=== PATIENT | male | born 1945 | race Hispanic/Latino ===

== ENCOUNTER 2017-01-13 16:19 | Observation (INO) | payer BC, MEDICARE ==
[2017-01-13 16:33] VITALS: BMI 30.8
--- NOTE | 2017-01-13 17:05 | ED PDOC ---
Arrival/HPI - General Chief Complaint: Male Genitourinary Time Seen by Provider: 01/13/17 16:32 Historian: Patient - History of Present Illness Narrative History of Present Illness (Text): 01/13/17 16:50 Hammad Taylor is a 71 year old male, whose past medical history includes diabetes, A fib, hypertension, chronic back pain, and a double hip replacement, who presents to the emergency department complaining of being unable to urinate since this morning. Patient states he presented symptoms to PMD, Dr. Muro, who directed patient to emergency department after symptoms persisted despite heavily drinking water for an hour. Patient denies any recent surgeries, painful urination, vomiting,or any other complaint at this time. PMD: Dr. Muro Time/Duration: 4-6 hours Symptom Onset: Gradual Symptom Course: Unchanged Activities at Onset: Rest Context: Home Past Medical History - Provider Review Nursing Documentation Reviewed: Yes - Infectious Disease Hx of Infectious Diseases: None - Cardiac Hx Atrial Fibrillation: Yes - Endocrine/Metabolic Hx Diabetes Mellitus Type 1: Yes - Psychiatric Hx Substance Use: No Family/Social History - Physician Review Nursing Documentation Reviewed: Yes Family/Social History: No Known Family HX Smoking Status: Never Smoked Hx Alcohol Use: No Hx Substance Use: No Allergies/Home Meds Allergies/Adverse Reactions: Allergies No Known Allergies Allergy (Verified 05/01/13 12:51) Home Medications: Home Meds Medication Instructions Recorded Confirmed Digoxin [Digox] 0.125 mg PO 05/01/13 05/01/13 Losartan Potassium [Cozaar] 100 mg PO 05/01/13 05/01/13 Warfarin [Coumadin] 3 mg PO 05/01/13 05/01/13 Review of Systems - Physician Review All systems were reviewed & negative as marked: Yes - Review of Systems Constitutional: absent: Fevers, Night Sweats Eyes: absent: Vision Changes ENT: absent: Hearing Changes Respiratory: absent: SOB, Cough Cardiovascular: absent: Chest Pain, Palpitations Gastrointestinal: absent: Abdominal Pain Genitourinary Male: Urinary Output Changes. absent: Dysuria, Frequency, Hematuria Musculoskeletal: absent: Back Pain, Neck Pain Skin: absent: Rash Neurological: absent: Headache, Dizziness Endocrine: absent: Polyuria Hemo/Lymphatic: absent: Easy Bleeding Psychiatric: absent: Depression Physical Exam - Physical Exam Narrative Physical Exam (Text): Constitutional: No acute distress. Head: Normocephalic. Atraumatic. Eyes: PERRL. ENT: Moist mucous membranes. Neck: Supple. Cardiovascular: Regular rate. Chest: No tenderness. Respiratory: Clear to auscultation bilaterally. GI: Jimenez in place with dark colored urine. No visible clots. Back: No CVA tenderness. Musculoskeletal: Mild pitting edema to bilateral Lower Extremities. Skin: No rash. Neurologic: Alert, no focal deficit. Medical Decision Making ED Course and Treatment: 01/13/17 16:55 Impression: 71 year old male complaining of being unable to urinate since this morning. Plan: -- Type and Screen -- Urinalysis, Urine Culture -- Labs -- Reassess and disposition Progress Notes: Patient with significant urine in jimenez with acquired coagulopathy required for atrial fibrillation but with some hemorrhage in urinary tract, requires admission for further evaluation. Dr. Muro recommends Dr. Zabala for consultation as patient has seen Dr. Zabala in the past for prostate testing. - Lab Interpretations Lab Results: 01/13/17 17:45 01/13/17 17:45 Lab Results 01/13/17 18:25: Blood Type Confirm O POSITIVE 01/13/17 17:45: Blood Type O POSITIVE, Antibody Screen Negative, BBK History Checked No verified bt 01/13/17 17:45: Sodium 130 L, Potassium 4.5, Chloride 97 L, Carbon Dioxide 24, Anion Gap 14, BUN 21, Creatinine 1.0, Est GFR ( Amer) > 60, Est GFR (Non- Af Amer) > 60, Random Glucose 136 H, Calcium 9.5, Total Bilirubin 0.8, AST 28, ALT 42, Alkaline Phosphatase 41, Total Protein 7.0, Albumin 4.1, Globulin 2.9, Albumin/Globulin Ratio 1.4 01/13/17 17:45: PT 31.3 H*, INR 2.90 H, APTT 41.9 H 01/13/17 17:45: WBC 12.4 H, RBC 4.56, Hgb 13.7 L, Hct 38.6 L, MCV 84.6, MCH 30.0 , MCHC 35.5, RDW 13.2, Plt Count 168, MPV 10.4, Gran % 84.4 H, Lymph % (Auto) 8.9 L, [place] % (Auto) 6.4 H, Eos % (Auto) 0.1 L, Baso % (Auto) 0.2, Gran # 10.50 H, Lymph # 1.1 L, [place] # 0.8 H, Eos # 0.0, Baso # 0.02 01/13/17 17:30: Urine Color Light red, Urine Appearance Cloudy, Urine pH 6.0, Ur Specific [place] 1.015, Urine Protein 100 H, Urine Glucose (UA) Negative, Urine Ketones Negative, Urine Blood Large H, Urine Nitrate Negative, Urine Bilirubin Negative, Urine Urobilinogen 0.2, Ur Leukocyte Esterase Negative, Urine RBC Tntc, Urine WBC 1 - 3, Ur Epithelial Cells 0 - 2, Urine Bacteria Few I have reviewed the lab results: Yes - Scribe Statement The provider has reviewed the documentation as recorded by the Patricia Barahona Provider Scribe Attestation: All medical record entries made by the Scribe were at my direction and personally dictated by me. I have reviewed the chart and agree that the record accurately reflects my personal performance of the history, physical exam, medical decision making, and the department course for this patient. I have also personally directed, reviewed, and agree with the discharge instructions and disposition. Disposition/Present on Arrival - Present on Arrival Any Indicators Present on Arrival: No History of DVT/PE: No History of Uncontrolled Diabetes: No Urinary Catheter: No History of Decub. Ulcer: No History Surgical Site Infection Following: None - Disposition Have Diagnosis and Disposition been Completed?: Yes Diagnosis: Urinary retention, Hematuria, Coagulopathy Disposition: HOSPITALIZED Disposition Time: 19:11 Patient Plan: Admission Condition: GUARDED Referrals: Jerad Muro DO [Primary Care Provider] - Follow up with primary
[2017-01-13 18:01] LABS: ADD MANUAL DIFF? NO
[2017-01-13 18:02] LABS: URINE APPEARANCE CLOUDY (CLEAR); URINE BILIRUBIN NEGATIVE (NEGATIVE); URINE BLOOD LARGE (NEGATIVE); URINE COLOR LIGHT RED (YELLOW); URINE GLUCOSE (UA) NEGATIVE (NEGATIVE); URINE KETONE NEGATIVE (NEGATIVE); URINE LEUKOCYTE ESTERASE NEGATIVE Leu/uL (NEGATIVE); URINE PROTEIN 100 mg/dL (<30 mg/dL); URINE UROBILINOGEN 0.2 E.U./dL (<1 E.U./dL)
[2017-01-13 18:07] LABS: BASO # 0.02 K/mm3 (0.0-2.0); BASO % 0.2 % (0.0-3.0); EOS % 0.1 % (1.5-5.0); GRAN % 84.4 % (50.0-68.0); HEMATOCRIT 38.6 % (42.0-52.0); LYMPH # 1.1 (1.2-3.4); LYMPH % 8.9 % (22.0-35.0); MEAN CELL VOLUME 84.6 fL (80.0-105.0); MEAN CORPUSCULAR HGB CONC 35.5 g/dl (31.0-37.0); MEAN PLATELET VOLUME 10.4 fl (7.0-11.0); MONO # 0.8 (0.1-0.6); MONO % 6.4 % (1.0-6.0); PLATELET COUNT 168 10^3/uL (120.0-450.0); RED CELL DISTRIBUTION WIDTH 13.2 % (11.5-14.5); WHITE BLOOD COUNT 12.4 10^3/ul (4.5-11.0)
[2017-01-13 18:15] LABS: ALB/GLOB RATIO 1.4 (1.1-1.8); ALKALINE PHOSPHATASE 41 U/L (38-133); ALT/SGPT 42 U/L (7-56); AST/SGOT 28 U/L (15-59); BILIRUBIN,TOTAL 0.8 mg/dL (0.2-1.3); BLOOD UREA NITROGEN 21 mg/dL (7-21); CALCIUM 9.5 mg/dL (8.4-10.5); CARBON DIOXIDE 24 mmol/L (21-33); CHLORIDE 97 mmol/L (98-107); GFR AFRICAN-AMERICAN > 60; GLUCOSE,RANDOM 136 mg/dL (70-110); POTASSIUM 4.5 mmol/L (3.6-5.0); SODIUM 130 mmol/L (132-148)
[2017-01-13 18:17] LABS: INR 2.9 (0.93-1.08); PARTIAL THROMBOPLASTIN TIME 41.9 Seconds (23.7-30.8)
[2017-01-13 18:20] LABS: URINE BACTERIA FEW (NEG); URINE EPITHELIAL CELLS 0 - 2 /hpf (0-5); URINE RBC TNTC /hpf (0-2)
[2017-01-13] MEDS ORDERED: Pneumococcal 23-Valent Vaccine IM ONE (22:56)
[2017-01-14 02:12] VITALS: O2SAT 96
[2017-01-14] MEDS ORDERED: Sodium Chloride 0.45% 1,000 ML IV SCH (07:45)
[2017-01-14 07:58] VITALS: BP 160/86; RESP 19; TEMP 99
[2017-01-14 08:04] LABS: ADD MANUAL DIFF? NO
[2017-01-14 08:14] LABS: BASO # 0.02 K/mm3 (0.0-2.0); BASO % 0.2 % (0.0-3.0); EOS # 0.1 (0.0-0.7); EOS % 1.2 % (1.5-5.0); GRAN # 5.98 (1.4-6.5); GRAN % 67.7 % (50.0-68.0); HEMATOCRIT 40.3 % (42.0-52.0); LYMPH # 1.9 (1.2-3.4); LYMPH % 21.2 % (22.0-35.0); MEAN CELL VOLUME 85.6 fL (80.0-105.0); MEAN CORPUSCULAR HEMOGLOBIN 29.5 pg (25.0-35.0); MEAN CORPUSCULAR HGB CONC 34.5 g/dl (31.0-37.0); MEAN PLATELET VOLUME 10.5 fl (7.0-11.0); MONO # 0.9 (0.1-0.6); MONO % 9.7 % (1.0-6.0); PLATELET COUNT 170 10^3/uL (120.0-450.0); RED CELL DISTRIBUTION WIDTH 13.5 % (11.5-14.5); WHITE BLOOD COUNT 8.8 10^3/ul (4.5-11.0)
[2017-01-14 08:21] LABS: INR 2.47 (0.93-1.08)
[2017-01-14 08:25] LABS: BLOOD UREA NITROGEN 18 mg/dL (7-21); CALCIUM 9.9 mg/dL (8.4-10.5); CARBON DIOXIDE 26 mmol/L (21-33); CHLORIDE 105 mmol/L (95-110); GFR AFRICAN-AMERICAN > 60; GLUCOSE,RANDOM 143 mg/dL (70-110); POTASSIUM 4.3 mmol/L (3.6-5.0); SODIUM 140 mmol/L (132-148)
[2017-01-14] MEDS ORDERED: diltiaZEM 240 mg/24 Hours CD Cap PO SCH (10:00)
[2017-01-14] MEDS ORDERED: Digoxin 125 mcg (0.125 mg) Tab PO SCH ×2 (10:00→14:00)
[2017-01-14] MEDS ORDERED: Omega-3-Acid Ethyl Esters 1 GM Cap PO SCH (10:00)
[2017-01-14 10:06] VITALS: PULSE 78
--- NOTE | 2017-01-14 10:37 | HP ---
HISTORY OF PRESENT ILLNESS: I know the patient very well. He called me yesterday telling me that he could not urinate when he woke up. He was not sure why. He was dribbling a little bit, he cannot get it to flow. He is not uncomfortable. I asked him to drink some water, in an hour see if he could urinate. He called me an hour and 15, said he still could not urinate, but now his abdomen was very distended and hard, so I sent him to the Emergency Room for urinary retention. They immediately put a catheter in him and a lot of urine came out. I discussed that with the Emergency Room doctor. So now he has got urinary retention with a Ham catheter in place. This has happened before in his past when he had surgery of his hip. PAST MEDICAL HISTORY: He has got some hypertension. He has atrial fibrillation. He has diabetes, A-fib, hypertension, chronic back pain, double hip replacement and now urinary retention. His blood sugars have been controlled well at home. FAMILY HISTORY: He has no known family history. SOCIAL HISTORY: Never smoked, no drugs, or alcohol. ALLERGIES: No known drug allergies. MEDICATIONS: He takes digoxin, Cozaar, warfarin, diltiazem, losartan, metformin , Lasix, omega 3s, and glyburide. REVIEW OF SYSTEMS: He tells me he felt much better once they put the Ham catheter in him and he was able to get rid of a lot of the fluid. On review of systems, no changes in vision, no changes in hearing. No sore throat. No neck pain, no headache, no dizziness, no chest pain, no palpitations, no shortness of breath, no cough. Did have abdominal pain in the lower part of the abdomen. It was hard. He could not urinate. No pain in his penis. He just could not urinate with lower abdominal hardness and distention. No back pain. No skin issues or rashes or breakdown, no easy bleeding, no depression or anxiety. PHYSICAL EXAMINATION: VITAL SIGNS: He has a 98.7 temp, 77 pulse, 148/62 blood pressure, 18 respiratory rate, 100% O2 sat on room air. HEENT: His head is atraumatic, normocephalic. Extraocular muscles are intact. Pupils equal, reactive to light and accommodation. Throat is moist, no erythema. NECK: Supple, no JVD. HEART: Regular rate. LUNGS: Decreased breath sounds, but clear to auscultation. ABDOMEN: At this time, soft, nontender, positive bowel sounds, but when he came to the Emergency Room, it was hard the lower abdomen and mildly distended. EXTREMITIES: He has trace edema of the lower extremities. SKIN: No rashes, intact. NEUROLOGIC: Alert and oriented x 3. GCS is 15. Cranial nerves II-XII grossly intact. Thyroid midline. No palpable appreciative lymphadenopathy. LABORATORY DATA: He has multiple tests. He had a 12.4 white count when he came in. We did not start antibiotics. I think it was stress related. The second one this morning is 8.8 white count, 13.9 hemoglobin, 40.3 hematocrit, and 170 platelets. INR is 2.47 on Coumadin, 140 sodium, potassium 4.3, BUN 18, creatinine 1, GFR is greater than 60, sugar is 143, calcium is 9.9. PSA was 7.9. It has been higher. Urine had large blood. That is now gone. No more blood in the Ham bag. was 0.5. He was put back on his medication. He is on IV fluids at 60 mL an hour, awaiting for urology to come in. Hopefully, we could trial later a time of no catheter, see if he could void. If he cannot void, then we will put it back in. He might have to home with a leg bag. I will try and get him discharged later this afternoon. He is here for hematuria, urinary retention, waiting for urology to see him. Jerad Muro DO cc: [id number] TT: 01/14/2017 10:36:00 tn MTDD
--- NOTE | 2017-01-14 12:24 | CON ---
DATE: 01/14/2017 CHIEF COMPLAINT: Difficulty urinating. HISTORY OF PRESENT ILLNESS: This is a 71-year-old male who was seen in his room at [facility]. The patient reports he was in his usual state of health until the day of admission, which was yesterday. The patient reports he woke up in the morning and voided without difficulty at about 5 a .m. About 7 a.m., he felt he needed to void and was unable. He spoke with his medical doctor and he was being observed. Later in the day, he began to feel bloated and some distention with some lower abdominal pain. He then was referred to the Emergency Room for evaluation. In the Emergency Room, a Ham catheter was passed. The patient reports drainage of a large volume of urine. However, it wa s not recorded. Initially, the urine was moderately blood-tinged. The patient is on Coumadin. The patient was admitted overnight. The urine cleared rapidly with fluids and the Ham was in place thi s morning. Ham catheter was removed about 15 minutes ago, prior to me seeing the patient, for a vo iding trial. The patient reports he had a few episodes of urinary retention in the past, usually aft er anesthesia from surgery. The week before admission, he reports he was voiding without any difficu lties, good force of stream, no dysuria, frequency, urgency or gross hematuria. He does report a his tory of an elevated PSA in the past and had a prostate biopsy, which showed no evidence of malignancy . He reports the PSA has remained elevated, but stable. consultation was requested regarding the above. PAST MEDICAL HISTORY: Significant for atrial fibrillation, hypertension, diabetes, chronic back pain , double hip replacement. MEDICATIONS: Include digoxin, Cozaar, Coumadin, Cardizem, losartan, metformin, Lasix, omega-3, and g lyburide. ALLERGIES: No known drug allergies. FAMILY HISTORY: Noncontributory. SOCIAL HISTORY: Negative for ETOH or cigarette smoking. REVIEW OF SYSTEMS: A 12-point was obtained. Positive for urinary retention and lower abdominal pain , which resolved with Ham placement. Positive for chronic back pain. Positive for bilateral hip p ain. Denies any chest pain or palpitations. Denies any cough or shortness of breath. Denies any we akness or lethargy. Denies any nausea or vomiting. Denies any fever or chills. Other systems are n egative. PHYSICAL EXAMINATION: GENERAL: The patient is awake, alert, answering questions. He is in no acute distress. VITAL SIGNS: He is afebrile. Temp of 99, BP 160/86, respirations 19, pulse of 80. NECK: Supple. There is no adenopathy. CHEST: Reveals a normal inspiratory effort. CARDIAC: Shows positive S1, S2. Pulse is irregular. There is no peripheral edema. ABDOMEN: Soft, nontender, nondistended. There is no hepatosplenomegaly, mildly obese. Bladder is n ot palpably distended. GENITOURINARY: Phallus is normal. Scrotum is normal. Testes are bilaterally descended, nontender, no masses. Epididymides are normal. There is no blood at the urethral meatus. LABORATORY EXAMINATION: WBC was 12.4, which came down to 8.8. Creatinine 1.0 with a GFR greater jolie n 60. Glucose mildly elevated. Urinalysis showed too numerous to count RBC, 1-3 WBC, negative nitri brionna. No pertinent radiologic exams have been done. IMPRESSION AND PLAN: This is a 71-year-old male who had an episode of acute urinary retention. Fole y catheter was removed by medical staff for a voiding trial. I would have recommended patient to con tinue the Ham catheter and he could have been discharged home as it appears he had a large volume o f urine drained. If patient is voiding adequately, he can be discharged home and follow up in my off ice. If he is unable to void, he can have the Ham catheter replaced and should then follow up in m y office next week. I would also recommend starting patient on an alpha jasmin such as Flomax or Ra paflo for now and I also recommend patient to receive a dose of antibiotics given his history of diab etes and the fact that he had Ham catheter in place overnight. Thank you for allowing us to participate in the care of this patient. We will follow him with you. I will discuss the care with his nurse and with his medical attending, Dr. Jerad Muro. Dg Zabala MD cc: [id number] TT: 01/14/2017 12:24:02 Confirmation # [id number] Dictation # [id number] en
[2017-01-14] MEDS ORDERED: Ciprofloxacin 400mg/200ml D5W 400 MG/200 ML BAG IVPB STA (12:25)
[2017-01-14 16:04] VITALS: PULSE 102
--- NOTE | 2017-01-28 12:45 | DS ---
He had a problem with his urinary retention. He came in, had a Ham placed. He did better. He had a little urinary retention. He was very uncomfortable. It was discussed with urology he could be d ischarged with a Ham leg bag since they took it out and he could not void, so they put it back in. He will be followed up on the outpatient with Dr. Zabala. Hopefully, he will do very well. He will b e on the same medications. The patient had urinary retention. Jerad Muro DO cc: [id number] TT: 01/28/2017 12:45:01 en
== END 2017-01-14 17:39 | disposition home or self-care (01) ==
LOC: ED 16:19 → ERH 19:44 → INTOOBSV 19:44 → ERH 21:47 → 3RSO 23:42
PROVIDERS: ADMIT Family Medicine; ATTEND Family Medicine
DX: R33.9 Retention of urine, unspecified (principal); R31.9 Hematuria, unspecified; E11.9 Type 2 diabetes mellitus without complications; I48.91 Unspecified atrial fibrillation; I10 Essential (primary) hypertension; M54.9 Dorsalgia, unspecified; G89.29 Other chronic pain; Z79.01 Long term (current) use of anticoagulants; Z96.649 Presence of unspecified artificial hip joint
CPT/HCPCS: 36415; 80048; 80053; 80162; 81001; 84153; 85025; 85610; 85730; 86850; 86900; 87086; 99285; G0378; J0744; J7030

== ENCOUNTER 2018-09-21 06:50 | Outpatient (CLI) | payer BC | END 2018-09-21 06:51 | disposition home or self-care (01) | LOC: CARDIO 06:50 | DX: I25.10 Atherosclerotic heart disease of native coronary artery without angina pectoris (principal) ==